=== PATIENT | female | born 1975 | race Caucasian/White ===

== ENCOUNTER 2021-09-17 13:12 | Observation (INO) | payer MEDICARE, SELFPAY ==
[2021-09-17] VITALS (17 sets, daily range): BP systolic 95–118; BP diastolic 67–90; PULSE 51–88; RESP 9–21; TEMP 36.4–37; O2SAT 93–100; BMI 23.1
--- NOTE | ~2021-09-17 | CT_ITS ---
EXAMINATION: CT abdomen pelvis wo con DATE: 09/17/2021 14:06 INDICATION: Low abdominal pain. Gastrointestinal hemorrhage. TECHNIQUE: Computed tomography (CT) of the abdomen and pelvis was performed without intravenous contr ast. Automated exposure control and iterative reconstruction technique were employed. The dose-length product was 238.05 mGy-cm. COMPARISON: None. FINDINGS: The visualized portions of the lung bases are clear without pneumonia or pleural effusion. There is left ventricular enlargement of the heart. 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 No pleural effusion. There are pacer wires in ri ght atrium and right ventricle. The liver, gallbladder, spleen, pancreas, adrenal glands, and kidneys are normal. There is no urolithiasis. There are no dilated loops of bowel. The appendix is normal. T here are no pathologically enlarged lymph nodes. There is no free intraperitoneal fluid. There is mil d lumbar spondylosis. IMPRESSION: 1. No etiology for the patient's symptoms. Reviewed, dictated and finalized at location B. 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
--- NOTE | 2021-09-17 13:35 | ED.GENADULT ---
HPI - General Adult General Chief complaint: GI Bleed Stated complaint: blood in vomit and stool Time Seen by Provider: 09/17/21 13:21 History of Present Illness HPI narrative: 45-year-old female with history of GI bleed presents to the emergency department for evaluation of hematemesis and hematochezia. Patient does have a prior history of GI bleed. Patient states her last GI bleed was approximately 10 years ago. Patient's last follow-up with GI was approximately 5 years ago. Patient has been taking up to 12 ibuprofen a day since July for ongoing dental pain. Patient began developing stomach pain about 4 days ago. Patient did have some emesis due to the stomach pain and noticed that she did have some blood in her emesis 2 days ago. And patient did have a bright red diarrhea stool today. Patient does report abdominal pain with nausea. Patient denies any chest pain or shortness of breath. Patient does report a prior history of drinking but denies any alcoholism, no drinking in 4 years. Patient also denies any prior history of esophageal varices. Related Data Home Medications Medication Instructions Recorded Confirmed carvedilol 3.125 mg PO BID 09/17/21 09/17/21 clopidogrel [Plavix] 75 mg PO DAILY 09/17/21 09/17/21 diazepam 5 mg PO TID PRN 09/17/21 09/17/21 famotidine 40 mg PO DAILY 09/17/21 09/17/21 furosemide [Lasix] 20 mg PO DAILY 09/17/21 09/17/21 levothyroxine 150 mcg PO DAILY 09/17/21 09/17/21 paroxetine HCl 10 mg PO QAM 09/17/21 09/17/21 rosuvastatin [Crestor] 40 mg PO DAILY 09/17/21 09/17/21 Allergies Allergy/AdvReac Type Severity Reaction Status Date / Time Penicillins AdvReac Seizure Verified 09/17/21 13:23 Review of Systems Review of Systems: CONSTITUTIONAL: Denies fever, chills, or sweats. EYES: Denies visual changes, redness, or discharge. ENT: Denies rhinorrhea, congestion, sore throat, or otalgia. CARDIOVASCULAR: Denies chest pain, palpitations, or edema. RESPIRATORY: Denies cough or dyspnea. GASTROINTESTINAL: Lower abdominal pain. Does report hematochezia and hematemesis GENITOURINARY: Denies dysuria or hematuria. SKIN: Denies rash or itching. MUSCULOSKELETAL: Denies back pain, joint pain, or myalgia. NEUROLOGIC: Denies headache, numbness, or weakness. PSYCHIATRIC: Denies anxiety or depression. [facility] Social History Social History Smoking packs per day: 0.5 Smoking cigarettes per day: 10.0 Smoking status: Current every day smoker Tobacco type: cigarettes Alcohol intake: never Substance use: current Substance use type: marijuana Spiritual care concerns: No Exam Narrative: APPEARANCE: Well appearing, no pain in distress, well-nourished. HEAD: normocephalic, atraumatic. EYES: PERRLA/EOMI, conjunctivae clear. NECK: Supple. No adenopathy, no masses. RESPIRATORY: Airway patent, respirations nonlabored. Clear to auscultation bilaterally, no rales, rhonchi, wheezing. CARDIOVASCULAR: Regular rate and rhythm without murmurs rubs or gallops. ABDOMINAL: Soft, nondistended, lower abdominal tenderness to palpation with MUSCULOSKELETAL: Moves all extremities. Strength/ROM intact, No edema, No calf tenderness. NEURO: Alert. Cranial nerves II through XII intact. SKIN: Warm, dry. Normal Color PSYCHIATRIC: Normal affect/mood. Course Course Emergency Course: Patient was started on Protonix for the GI bleed. Patient has no history of esophageal varices so octreotide was not ordered. Hemoglobin is stable at 15. Patient's labs and imaging were reviewed. Imaging was ordered due to the patient complaining of lower abdominal pain. Case was discussed with GI and he will see the patient as comfortable. Patient was discussed with the hospitalist and patient was admitted. Patient was clinically stable at time of admission. Consultations Consultation #1: Dr. Kinsey for GI was consulted due to the upper GI bleed. He agreed to see the patient as consult
[2021-09-17 13:41] LABS: Basophils Percent Auto 0.4 % (0.2-1.2); Eosinophils Percent Auto 0.2 % (0-4.4); Hematocrit 44.4 % (37.0-47.0); Hemoglobin 15.8 g/dL (12.0-15.0); Immature Granulocyte Absolute 0.04 K/mm3 (0.00-0.031); Immature Granulocyte Percent A 0.4 % (0-0.5); Lymphocytes Absolute Auto 2.16 K/mm3 (0.9-3.2); Lymphocytes Percent Auto 23.6 % (18.3-44.2); Mean Corpuscular HGB Conc 35.6 g/dl (32-36); Mean Corpuscular Hemoglobin 31.7 pg (26-34); Mean Platelet Volume 9.4 fl (7.4-10.4); Monocytes Absolute Auto 0.6 K/mm3 (0.1-0.6); Monocytes Percent Auto 6.8 % (2.6-8.5); Neutrophils Absolute Auto 6.3 K/mm3 (1.3-6.7); Neutrophils Percent Auto 68.6 % (45.5-73.1); Platelet Count Result 265 k/mm3 (150-375); Red Blood Count 4.99 M/mm3 (4.2-5.4); Red Cell Distribution Width 12.3 % (11.5-14.5); White Blood Count 9.2 K/mm3 (4.5-10.0)
[2021-09-17] MEDS: ONDANSETRON INJ 4 MG/2 ML VIAL IV PUSH ×2 (13:47→17:07)
[2021-09-17] MEDS: PANTOPRAZOLE SODIUM IV 40 MG VIAL 80 MG IV PUSH (13:47)
[2021-09-17] MEDS: SODIUM CHLORIDE 0.9% IV 1,000 ML 999 ML IV CONT (13:48)
[2021-09-17] MEDS: HYDROmorphone HCL INJ (*CRX) 1 MG/ML SYR 0.5 MG IV PUSH ×2 (13:51→21:10)
[2021-09-17 13:55] LABS: Alanine Aminotransferase 26 U/L (4-35); Albumin Level 5.2 g/dL (3.5-5.1); Alkaline Phosphatase 97 U/L (38-126); Anion Gap 13 mmol/L (8-16); Aspartate Amino Transferase 34 U/L (14-36); Bilirubin,Total 0.7 mg/dL (0.2-1.3); Blood Urea Nitrogen 12 mg/dL (7-17); Calcium 9.8 mg/dL (8.4-10.2); Carbon Dioxide 30 mmol/L (22-30); Chloride 98 mmol/L (98-107); Estimated CRCL calculation 51 ml/min; Estimated Glomerular Filt Rate 54; Glucose 155 mg/dL (65-110); Potassium 3.2 mmol/L (3.4-5.0); Sodium 141 mmol/L (137-145)
[2021-09-17 13:56] LABS: Prothrombin Time 13.3 Seconds (11.1-14.7)
--- NOTE | 2021-09-17 15:38 | WPDGICN ---
Assessment and Plan Assessment and plan (1) Acute upper gastrointestinal bleeding: Code(s): K92.2 - Gastrointestinal hemorrhage, unspecified Status: Acute Assessment and Plan: after vomiting for the past 5 days she became aware that she had blood in her emesis today. She did not have black stools which she recalls having had when she had a bleeding ulcer 10 years ago. Based on her excessive ibuprofen use, I suspect she probably has a gastric or duodenal ulcer. She may also have Isabel-Zarate tear because of her emesis. her hemoglobin on admission was normal. Based on her history I suspect she is quite dehydrated, although her BUN is surprisingly normal. After having had 1 L of IV fluids she states that she is still very thirsty. I will tentatively schedule her for an EGD to be done tomorrow (2) Rectal bleeding: Code(s): K62.5 - Hemorrhage of anus and rectum Status: Acute Assessment and Plan: the 1st episode was today. It was bright red suggesting that there may be a colorectal source of bleeding as well (3) Cardiomyopathy: Code(s): I42.9 - Cardiomyopathy, unspecified Status: Acute Assessment and Plan: this was diagnosed about 12 years ago. She was told that she has an abnormality of her heart valves from . She denies any chest pain at present. (4) Hypothyroidism: Code(s): E03.9 - Hypothyroidism, unspecified Status: Acute Assessment and Plan: She states that she became severely hypothyroid in that her body shut down this apparently led to some of her cardiac problems according to her core analyst, Dr. Cabral GI Consult Note Consult date/time: 09/17/21 15:38 HPI: Carmenza Beth is a 45 year old female who presents emergency room with a history of vomiting for the past 5 days. Today she noticed that there was blood in her emesis. She has not been able to eat because of the nausea. Which he vomited was mostly bile with streaks of red blood. She states her abdomen has felt as though it is on fire. The discomfort is generalized. She states that it briefly improved and in fact resolved for about an hour when she was given pantoprazole on her arrival. She had also been given hydromorphone, which I suspect was we gave her the temporary relief. She states that she began having clots of red blood in her stools which were loose and almost watery today. This is after having had no bowel movement for about 4 days. She states that she had a bleeding ulcer about 10 years ago and had an EGD and colonoscopy at that time. She does not have a primary care physician at the present time But does see a core analyst. 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 Her core analyst prescribes all of her medications including her thyroid medication. She apparently was very hypothyroid which led to her cardiac failure symptoms several years ago. She has had some sore teeth and needs dental work. Consequently she has been taking about 12 ibuprofen tablets daily since July. Review of Systems Review of Systems: All systems reviewed & are unremarkable except as noted in HPI and below Meds Home Medications and Allergies Home Medications Medication Instructions Recorded Confirmed Type carvedilol 3.125 mg PO BID 09/17/21 History clopidogrel [Plavix] 75 mg PO DAILY 09/17/21 History diazepam 5 mg PO TID PRN 09/17/21 History famotidine 40 mg PO DAILY 09/17/21 History furosemide [Lasix] 20 mg PO DAILY 09/17/21 History levothyroxine 150 mcg PO DAILY 09/17/21 History paroxetine HCl 10 mg PO QAM 09/17/21 History rosuvastatin [Crestor] 40 mg PO DAILY 09/17/21 History Allergies Allergy/AdvReac Type Severity Reaction Status Date / Time Penicillins AdvReac Seizure Verified 09/17/21 13:23 Vital Signs Vital Signs - 24 hr 09/17/21 13:14 Temperature 36.4 C P
[2021-09-17] MEDS: SODIUM CHLORIDE 0.9% IV 1,000 ML 125 ML IV CONT (17:06)
--- NOTE | 2021-09-17 17:24 | ADMGEN ---
This patient, Carmenza Beth, was admitted to Medical Room 342-01. Patient/family oriented to hospital policies and general routines including ID bracelet, bed and alarms, visiting hours, pain management, procedures, bathroom and other care routines, personal items, smoking policy, room service/diet, and visiting hours. Information on how to activate the Rapid Response Team has been discussed. Patient/Family are encouraged to report perceived risks to care and to ask questions if they do not understand what they are told or what they should do.
--- NOTE | 2021-09-17 23:26 | PM.IMHP ---
H&P: HPI History of Present Illness Date/Time: 09/17/212229 this is a 45-year-old female patient who came to the emergency room to be evaluated for GI bleed. The patient has been having some dental problems and has been taking up to 12 Motrin today along with her Plavix. The patient stated that her last GI bleed was approximately 10 years ago. The patient is complaining of having some epigastric discomfort. She has been having some hematemesis as well as hematochezia. The patient noticed that she had blood in her emesis about 2 days ago. This also led to bright red diarrhea stool today. She has abdominal pain with nausea. The patient denies drinking alcohol. She has had nothing to relieve her discomfort. H&H is 15.8 and 44.4. Patient most likely is dehydrated as well. Potassium slightly low at 3.2. Creatinine 1.1. Glucose 155. The patient was given Protonix IV, IV fluids, Dilaudid and Zofran in the emergency room. The patient is being admitted to observation status on the date of service of 09/17/21 Chief Complaint: Vomiting blood and blood in the stool Review of Systems Review of Systems: All systems reviewed & are unremarkable except as noted in HPI and below Constitutional: Constitutional: Reports as per HPI and Reports no additional constitutional complaints Eyes: Eyes: Reports as per HPI and Reports no additional eye complaints ENT: Reports system reviewed and no additional complaints, except as documented and Reports Normal hearing present Cardiovascular: Cardiovascular: Reports no additional cardiovascular complaints Respiratory: Respiratory: Reports no additional respiratory complaints and Reports no additional respiratory complaints Gastrointestinal: Gastrointestinal: Reports as per HPI and Reports no additional gastrointestinal complaints Musculoskeletal: Musculoskeletal: Reports no additional musculoskeletal complaints Integumentary/Breasts: Skin/Breast: Reports system reviewed and no additional complaints, except as docu and Reports as per HPI Neurologic: Reports system reviewed and no additional complaints, except as documented, Reports as per HPI and Reports Normal hearing present Psychiatric: Psychiatric: Reports no additional psychiatric complaints and Reports as per HPI Endocrine: Endocrine: Reports no additional endocrine complaints Hematologic/Lymphatic: Hematologic/Lymphatic: Reports no additional hematologic/lymphatic complaints Allergic/Immunologic: Allergic/Immunologic: Reports no additional allergic/immunologic complaints [facility] Past Medical History Medical History (Updated 09/17/21 @ 23:34 by Dinora Uribe NP) Anxiety CAD (coronary artery disease) Congestive heart failure Hyperlipidemia Surgical History Surgical History (Updated 09/17/21 @ 23:34 by Dinora Uribe NP) H/O heart artery stent According 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 She has 2 children. She is considered disabled. The patient is a current smoker but was strongly encouraged to quit smoking and stated that she was ready to quit smoking. The patient also uses marijuana. 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 She denies alcohol or illicit drugs. Code status full code Smoking packs per day: 0.5 Smoking cigarettes per day: 10.0 Smoking status: Current every day smoker Tobacco type: cigarettes Alcohol intake: never Substance use: current Substance use type: marijuana Spiritual care concerns: No Meds Home Medications and Allergies Home Medications Medication Instructions Recorded Confirmed Type carvedilol 3.125 mg PO BID 09/17/21
[2021-09-18] VITALS (8 sets, daily range): BP systolic 104–145; BP diastolic 60–92; PULSE 65–131; RESP 12–23; TEMP 36.1–36.3; O2SAT 92–100
[2021-09-18 01:25] LABS: Hematocrit 36.5 % (37.0-47.0); Hemoglobin 12.5 g/dL (12.0-15.0)
[2021-09-18] MEDS: ONDANSETRON INJ 4 MG/2 ML VIAL IV PUSH ×3 (01:50→12:36)
[2021-09-18] MEDS: SODIUM CHLORIDE 0.9% IV 1,000 ML 125 ML IV CONT ×2 (01:50→10:08)
[2021-09-18] MEDS: diazePAM (*CRX) 5 MG TABLET PO ×2 (02:10→12:36)
[2021-09-18] MEDS: LEVOTHYROXINE SODIUM 150 MCG TABLET PO (05:34)
[2021-09-18 06:02] LABS: Lactate Dehydrogenase 418 U/L (313-618); Magnesium 2.1 mg/dL (1.6-2.3)
[2021-09-18 06:06] LABS: Hematocrit 34.3 % (37.0-47.0); Hemoglobin 11.9 g/dL (12.0-15.0); Mean Corpuscular HGB Conc 34.7 g/dl (32-36); Mean Corpuscular Hemoglobin 31.3 pg (26-34); Mean Corpuscular Volume 90.3 fl (80-100); Mean Platelet Volume 9.5 fl (7.4-10.4); Platelet Count Result 207 k/mm3 (150-375); White Blood Count 7.1 K/mm3 (4.5-10.0)
[2021-09-18 06:52] LABS: Thyroid Stimulating Hormone Reflex 0.037 uIU/mL (0.465-4.68)
[2021-09-18] MEDS: LACTATED RINGERS 1,000 ML 150 ML IV CONT (07:26)
--- NOTE | 2021-09-18 07:34 | WPDANESEPPF ---
Anes - Initial Pre Proc Eval Procedure: Operation Date: 09/18/21 07:30 Proposed Procedures p Esophagogastroduodenoscopy - Giuliano Kinsey MD Date/Time: 09/18/21 07:34 Surgeon: Sandy Murphy PA-C Pre Op Diagnosis: upper GI bleed Patient Data Age: 45 Gender: F Height: 1.63 m Weight: 61.2 kg Last Vital Signs Temp 36.3 C L 09/18/21 07:10 Pulse 67 09/18/21 07:10 Resp 18 09/18/21 07:10 BP 125/79 09/18/21 07:10 Pulse Ox 98 09/18/21 07:10 Allergies Allergy/AdvReac Type Severity Reaction Status Date / Time Penicillins AdvReac Seizure Verified 09/18/21 07:25 Home Medications Medication Instructions Recorded Confirmed Type carvedilol 3.125 mg PO BID 09/17/21 09/17/21 History clopidogrel [Plavix] 75 mg PO DAILY 09/17/21 09/17/21 History diazepam 5 mg PO TID PRN 09/17/21 09/17/21 History famotidine 40 mg PO DAILY 09/17/21 09/17/21 History furosemide [Lasix] 20 mg PO DAILY 09/17/21 09/17/21 History levothyroxine 150 mcg PO DAILY 09/17/21 09/17/21 History paroxetine HCl 10 mg PO QAM 09/17/21 09/17/21 History rosuvastatin [Crestor] 40 mg PO DAILY 09/17/21 09/17/21 History Laboratory Tests 09/17/21 09/17/21 09/17/21 13:33 13:33 13:33 WBC 9.2 K/mm3 K/mm3 (4.5-10.0) RBC 4.99 M/mm3 M/mm3 (4.2-5.4) Hgb 15.8 g/dL H g/dL (12.0-15.0) Hct 44.4 % % (37.0-47.0) MCV 89.0 fl fl (80-100) MCH 31.7 pg pg (26-34) MCHC 35.6 g/dl g/dl (32-36) RDW 12.3 % % (11.5-14.5) Plt Count 265 k/mm3 k/mm3 (150-375) MPV 9.4 fl fl (7.4-10.4) Immature Gran % (Auto) 0.4 % % (0-0.5) Neut % (Auto) 68.6 % % (45.5-73.1) Lymph % (Auto) 23.6 % % (18.3-44.2) [place] % (Auto) 6.8 % % (2.6-8.5) Eos % (Auto) 0.2 % % (0-4.4) Baso % (Auto) 0.4 % % (0.2-1.2) Lymph # (Auto) 2.16 K/mm3 K/mm3 (0.9-3.2) [place] # (Auto) 0.6 K/mm3 K/mm3 (0.1-0.6) Eos # (Auto) 0.0 K/mm3 K/mm3 (0-0.3) Baso # (Auto) 0.0 K/mm3 K/mm3 (0.0-0.1) Abs Immat Gran (auto) 0.04 K/mm3 H K/mm3 (0.00-0.031) Absolute Neuts (auto) 6.3 K/mm3 K/mm3 (1.3-6.7) Absolute Nucleated RBC 0.0 K/mm3 K/mm3 (0.0-0.012) Nucleated RBC % 0.0 % % (0.0-0.2) PT 13.3 Seconds Seconds (11.1-14.7) INR 1.0 APTT 26.0 SECONDS SECONDS (22.3-36.8) Sodium 141 mmol/L mmol/L (137-145) Potassium 3.2 mmol/L L mmol/L (3.4-5.0) Chloride 98 mmol/L mmol/L (98-107) Carbon Dioxide 30 mmol/L mmol/L (22-30) Anion Gap 13 mmol/L mmol/L (8-16) BUN 12 mg/dL mg/dL (7-17) Creatinine 1.10 mg/dL H mg/dL (0.7-1.0) Estim Creat Clear Calc 51 ml/min ml/min Estimated GFR 54 L (59 - ) Glucose 155 mg/dL H mg/dL (65-110) Calcium 9.8 mg/dL mg/dL (8.4-10.2) Magnesium Ferritin Total Bilirubin 0.7 mg/dL mg/dL (0.2-1.3) AST 34 U/L U/L (14-36) ALT 26 U/L U/L (4-35) Alkaline Phosphatase 97 U/L U/L (38-126) Lactate Dehydrogenase Total Protein 8.0 g/dL g/dL (6.3-8.2) Albumin 5.2 g/dL H g/dL (3.5-5.1) TSH (Reflex) Free T4 Blood Type Antibody Screen 09/17/21 09/18/21 09/18/21 13:35 00:18 05:17 WBC 7.1 K/mm3 K/mm3 (4.5-10.0) RBC 3.80 M/mm3 L M/mm3 (4.2-5.4) Hgb 12.5 g/dL D g/dL 11.9 g/dL L g/dL (12.0-15.0) (12.0-15.0) Hct 36.5 % L % 34.3 % L % (37.0-47.0) (37.0-47.0) MCV 90.3 fl fl (80-100) MCH 31.3 pg pg (26-34) MCHC 34.7 g/dl g/dl (32-36) RDW 12.0 % % (11.5-14.5) Plt Count 207 k/mm3 k/mm3 (150-375) MPV 9.5 fl fl (7.4-1
--- NOTE | 2021-09-18 08:00 | ECG_ITS ---
Measurements Intervals [place] Rate: 53 P: 101 [place]: 191 QRS: 78 QRSD: 98 T: 89 QT: 453 QTc: 427 Interpretive Statements ELECTRONIC ATRIAL PACEMAKER WITH INHIBITION CANNOT RULE OUT SEPTAL INFARCT, AGE INDETERMINATE ST-T WAVE ABNORMALITY IN ANTEROLATERAL LEADS- CONSIDER ISCHEMIA BASELINE WANDER- V4 ABNORMAL ECG Electronically Signed On 09-18-2021 14:10:29 [employer] SALESPERSON by Derrick Guzmán D.O.
--- NOTE | 2021-09-18 08:45 | SUR.PHASEII ---
0806- Pt c/o nausea. Zofran 4mg IVP given. 0810-Pt up to use the restroom. Pt states she had a BM. No blood in stool.
[2021-09-18] MEDS: POTASSIUM CHLORIDE 20 MEQ TABLET 40 MEQ PO (09:30)
[2021-09-18] MEDS: PANTOPRAZOLE SODIUM IV 40 MG VIAL IV PUSH (09:30)
[2021-09-18] MEDS: ROSUVASTATIN 10 MG TABLET 40 MG PO (09:31)
[2021-09-18] MEDS: carvediloL 3.125 MG TABLET PO (09:31)
[2021-09-18] MEDS: PARoxetine 10 MG TABLET PO (09:31)
[2021-09-18] MEDS: FUROSEMIDE 20 MG TABLET PO (09:31)
[2021-09-18 10:09] LABS: Free T4 Free Thyroxine Reflex 1.92 ng/dL (0.78-2.19)
--- NOTE | 2021-09-18 10:58 | PM.DS ---
DS: Admitting Diagnosis Discharge Date 09/18/21 Admitting Diagnosis acute GI bleed DS: Discharge Diagnosis Discharge Diagnosis (1) Acute upper gastrointestinal bleeding: Code(s): K92.2 - Gastrointestinal hemorrhage, unspecified Status: Acute Assessment and Plan: -pt had been taking her plavix and up to 12 Motrin per day -GI consult -IV protonix -H/H q6 hrs, has been stable, Hgb dropped from 15.8 to 12.5 yesterday and then has remained stable today at 11.9 -EGD today, findings include nonerosive reflux disease, unspecified gastric ulcer, and duoedenitis. -GI recommendations per Dr. Kinsey: may be discharged today as she is able to eat and drink at this time. He recommends avoiding NSAIDs for 7 days and then only take with food in her stomach. She will also be discharged home on Protonix 40 mg QD x 6 weeks. -She will resume her Plavix on discharge (2) Rectal bleeding: Code(s): K62.5 - Hemorrhage of anus and rectum Status: Acute Assessment and Plan: -Secondary to above -Pt denies any further blood in her stools -Hgb stable, hemodynamically stable -Will follow up outpatient with GI (3) CAD (coronary artery disease): Code(s): I25.10 - Atherosclerotic heart disease of jackson coronary artery without angina pectoris Status: Chronic Assessment and Plan: -The patient tells me that she has a history of congestive heart failure as well as coronary artery disease with 14 stents due to congenital problem. -current smoker -EKG was ordered which was abnormal, no prior for comparison. Shows sinus arrhythmia and sinus bradycardia rate 53, with intermittent atrial pacing, somewhat biphasic T-waves in V3 through V6, T-wave inversion V5 and V6, and a possible septal with nonspecific ST changes. -consulted cardiology, spoke w/ Dr. Alfred who reveiwed EKG and saw the patient. Although the EKG is abnormal, pt denies any chest pain or shortness of breath. It is certainly possible that these EKG changes are old with her extensive cardiac history. Dr. Alfred also called the patient's regular shadowgraph scale operator who read a recent EKG over the phone and the changes on today's do seem to be consistent with prior EKGs. She has had two negative troponins and would like to be discharged. She is followed by Dr. Felicity Cabral and will follow up with her outpatient. -All questions and concerns were addressed. Strict return precautions provided. (4) Cardiomyopathy: Code(s): I42.9 - Cardiomyopathy, unspecified Status: Acute Assessment and Plan: -seen by cardiology here -will follow closely with her shadowgraph scale operator outpatient (5) Hypothyroidism: Code(s): E03.9 - Hypothyroidism, unspecified Status: Chronic Assessment and Plan: -continue with levothyroxine -TSH low but free T4 WNL -pcp follow up (6) Congestive heart failure: Code(s): I50.9 - Heart failure, unspecified Status: Chronic Assessment and Plan: -Continued with home meds (7) Hyperlipidemia: Code(s): E78.5 - Hyperlipidemia, unspecified Status: Chronic Assessment and Plan: -Continued with Crestor (8) Anxiety: Code(s): F41.9 - Anxiety disorder, unspecified Status: Chronic Assessment and Plan: -Continued with paroxetine and diazepam. DS: Summary Hospital Course Reason for hospitalization: 45 yo female w/ hx of GI bleed and CAD w/ 14 stents, current smoker, admitted for acute GI bleed. Please see HPI for further details. Hospital Course: Please see above for details of hospital stay. Time spent discussing smoking cessation with patient: more than 10 minutes Status at Discharge Cognitive/behavioral status at discharge: stable Functional status at discharge: independent ambulation Overall status at discharge: patient is progressing back to baseline Time Spent with Patient Time attestation: Total
[2021-09-18 12:00] LABS: Total Triiodothyronine (T3) 1.13 NG/ML (0.97-1.69)
[2021-09-18 12:09] LABS: Hematocrit 33.9 % (37.0-47.0); Hemoglobin 11.7 g/dL (12.0-15.0)
[2021-09-18 12:32] LABS: Troponin I < 0.012 ng/mL (0.000-0.034)
--- NOTE | 2021-09-18 13:50 | PM.CNCAR ---
Assessment and Plan Assessment and plan (1) Abnormal EKG: Code(s): R94.31 - Abnormal electrocardiogram [ECG] [EKG] Status: Acute Assessment and Plan: Patient has an abnormal EKG which could represent ischemia. I called [facility] in talk to the nurse practitioner on-call, Vu Brian, and got a verbal description of her most recent EKG which sounds similar to what we have at [facility]. He also gave me some background on her history as described above. The patient has had no chest discomfort and two neagive troponins so I think it is reasonable for her to be discharged today from a cardiac point of view. RAND CEMENTER Vu Brian felt it would be safe to hold her Plavix if needed for a short while. (2) CAD (coronary artery disease): Code(s): I25.10 - Atherosclerotic heart disease of [place] coronary artery without angina pectoris Status: Chronic Assessment and Plan: Long history of CAD, anterior STEMI in 2008, multiple stents. Last catheterization in January 2021 showed patent stents. Continue secondary prevention with Plavix (if okay with Dr. Kinsey), carvedilol, statin therapy etc. (3) Acute upper gastrointestinal bleeding: Code(s): K92.2 - Gastrointestinal hemorrhage, unspecified Status: Acute Assessment and Plan: Had upper GI bleeding with the decline in H&H due to duodenitis and gastric ulcers. Had been taking a lot of nonsteroidals recently for dental pain. These have been discontinued any she is on a PPI for 6 weeks. (4) Cardiomyopathy: Code(s): I42.9 - Cardiomyopathy, unspecified Status: Acute Assessment and Plan: History of cardiomyopathy most recent EF 35% in January 2021. ICD is followed by [facility]/Dr. Felicity Cabral. History of Present Illness History of Present Illness Consult date/time: 09/18/21 13:50 Requesting physician: Sandy Murphy PA-C Consult reason: Other (abnormal EKG) Reason For Visit: upper GI bleed Narrative: Carmenza Beth is a 45 y.o. WF usually followed by Dr. Felicity Cabral for her CAD. We were asked to see her at the request of the hospitalist for advice and opinion regarding her abnormal EKG in consultation. Very little past medical history is available through EMR, but Epic documents and discussion w/ RAND CEMENTER from [facility] show she had a STEMI in 2008 w/ an LAD stent. She has had multiple coronary interventions/stents placed in 2008, 2009, and in 2012. Her ejection fraction in 2019 was 25%. She had a Medtronic ICD implanted in 2013, and later a Biotronik generator change in October 2017. A note from Dr. Cabral dated November 2020 showed patient has frequent chest pain. Her stress test was abnormal. Cardiac catheterization in January 2021 showed patent stents, 50% in stent restenosis of the ostial diagonal stent and 40% stenosis of the distal Left anterior descending, EF 35%. In retrospect it appears that her Synthroid dose was too high and causing problems. She has been doing well over the summer and fall, and active with no angina or nitroglycerin use. The patient had been taking a lot of ibuprofen recently for dental pain and was admitted yesterday with hematemesis and hematochezia. Her hematocrit declined from 44 to 34. No further clinical bleeding. Patient takes Plavix but not aspirin at home. EGD today showed duodenitis and multiple superficial ulcers of the gastric antrum. He recommended avoiding nonsteroidals. The patient is on a PPI. She had an EKG done, perhaps a preprocedure EKG, which was abnormal. The patient states that she has had no chest pain or angina, no shortness of breath. She feels fine wants to go home. Review of Systems Constitutional: Constitutional: Reports no additional constitutional complaints Eyes: Eyes: Reports no additional eye complaints ENT:
[2021-09-18 15:39] LABS: Troponin I < 0.012 ng/mL (0.000-0.034)
== END 2021-09-18 16:10 | disposition home or self-care (01) ==
LOC: ANHED 15:20 → ANH3MED 15:33
PROVIDERS: Internal Medicine Gastroenterology; Nurse Practitioner; Admitting Provider Internal Medicine; Emergency Provider Emergency Medicine; Visit Provider Physician Assistant
PROC: 0DJ08ZZ Inspection of Upper Intestinal Tract, Via Natural or Artificial Opening Endoscopic (ICD-10-PCS; CPT 43235; principal; 2021-09-18 07:30)
DX: K25.4 Chronic or unspecified gastric ulcer with hemorrhage (principal); K21.9 Gastro-esophageal reflux disease without esophagitis; K29.80 Duodenitis without bleeding; K62.5 Hemorrhage of anus and rectum; I42.9 Cardiomyopathy, unspecified; R94.31 Abnormal electrocardiogram [ECG] [EKG]; E03.9 Hypothyroidism, unspecified; I25.10 Atherosclerotic heart disease of native coronary artery without angina pectoris; F41.9 Anxiety disorder, unspecified; I50.9 Heart failure, unspecified; E78.5 Hyperlipidemia, unspecified; Z95.5 Presence of coronary angioplasty implant and graft; Z79.02 Long term (current) use of antithrombotics/antiplatelets; F17.210 Nicotine dependence, cigarettes, uncomplicated; F12.90 Cannabis use, unspecified, uncomplicated
CPT/HCPCS: 43239; 36415; 74176; 80053; 82728; 83615; 83735; 84439; 84443; 84480; 84484; 85014; 85018; 85025; 85027; 85610; 85730; 86850; 86900; 86901; 87081; 93005; 96361; 96374; 96375; 96376; 99285; A9270; C9113; G0378; J1170; J2405; J2704; J7030; J7120

== ENCOUNTER 2021-10-05 12:06 | Outpatient (CLI) | payer MEDICARE, SELFPAY ==
[2021-10-05 12:50] LABS: Basophils Absolute Auto 0.1 K/mm3 (0.0-0.1); Basophils Percent Auto 0.7 % (0.2-1.2); Eosinophils Absolute Auto 0.1 K/mm3 (0-0.3); Eosinophils Percent Auto 1.1 % (0-4.4); Hematocrit 42.2 % (37.0-47.0); Hemoglobin 14.3 g/dL (12.0-15.0); Immature Granulocyte Absolute 0.02 K/mm3 (0.00-0.031); Immature Granulocyte Percent A 0.2 % (0-0.5); Lymphocytes Absolute Auto 2.84 K/mm3 (0.9-3.2); Lymphocytes Percent Auto 28.9 % (18.3-44.2); Mean Corpuscular HGB Conc 33.9 g/dl (32-36); Mean Corpuscular Hemoglobin 31.8 pg (26-34); Mean Corpuscular Volume 93.8 fl (80-100); Mean Platelet Volume 8.9 fl (7.4-10.4); Monocytes Absolute Auto 0.6 K/mm3 (0.1-0.6); Monocytes Percent Auto 6.3 % (2.6-8.5); Neutrophils Absolute Auto 6.2 K/mm3 (1.3-6.7); Neutrophils Percent Auto 62.8 % (45.5-73.1); Platelet Count Result 265 k/mm3 (150-375); Red Cell Distribution Width 12.4 % (11.5-14.5); White Blood Count 9.8 K/mm3 (4.5-10.0)
== END 2021-10-05 12:07 | disposition home or self-care (01) ==
PROVIDERS: Visit Provider Physician Assistant
DX: K92.2 Gastrointestinal hemorrhage, unspecified (principal)
CPT/HCPCS: 36415; 85025

== ENCOUNTER 2021-10-30 10:51 | Emergency (ER) | payer MEDICARE, SELFPAY ==
[2021-10-30] VITALS (8 sets, daily range): BP systolic 93–114; BP diastolic 64–77; PULSE 76–86; RESP 16–18; O2SAT 96–100
--- NOTE | ~2021-10-30 | XR_ITS ---
EXAMINATION: XR knee LT 3V EXAM DATE: 10/30/2021 11:16 INDICATION: fall x1 day, worsening lateral proximal fibular pain . TECHNIQUE: Three projections of the left knee. There is no prior study for comparison. FINDINGS: No evidence osteochondral defect or joint body in the left knee joint. There are no acute fractures or dislocations identified. There is no subcutaneous gas. There is moderate-sized joint effusion. There are no radiopaque foreign bodies. IMPRESSION: 1. XR knee LT 3V exam without acute osseous findings. 2. Moderate-sized joint effusion. Reviewed, dictated and finalized at location A. 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
--- NOTE | 2021-10-30 11:14 | ED.LOWEXIN ---
HPI - Extremity Injury (Lower) General Chief Complaint: Extremity Injury, Lower Stated Complaint: fall/knee injury Time Seen by Provider: 10/30/21 10:58 Source: patient History of Present Illness HPI Narrative: Patient presents with left knee pain. Reports she stepped off a curb yesterday slipped on ice and fell onto her left knee. Attempted to walk her pain off however today her pain is much worse so she came to the ER for evaluation. Pain is achy, constant, worse with attempting to move the knee. Reports she is unable to ambulate today due to the pain. She denies any focal numbness or weakness denies striking her head or any loss of consciousness Related Data Home Medications Medication Instructions Recorded Confirmed carvedilol 3.125 mg PO BID 09/17/21 09/17/21 clopidogrel [Plavix] 75 mg PO DAILY 09/17/21 09/18/21 diazepam 5 mg PO TID PRN 09/17/21 09/17/21 furosemide [Lasix] 20 mg PO DAILY 09/17/21 09/17/21 levothyroxine 150 mcg PO DAILY 09/17/21 09/17/21 paroxetine HCl 10 mg PO QAM 09/17/21 09/17/21 rosuvastatin [Crestor] 40 mg PO DAILY 09/17/21 09/17/21 Allergies Allergy/AdvReac Type Severity Reaction Status Date / Time Penicillins AdvReac Seizure Verified 09/18/21 07:25 Review of Systems Review of Systems: CONSTITUTIONAL: Denies fever, chills, or sweats. EYES: Denies visual changes, redness, or discharge. ENT: Denies rhinorrhea, congestion, sore throat, or otalgia. CARDIOVASCULAR: Denies chest pain, palpitations, or edema. RESPIRATORY: Denies cough or dyspnea. GASTROINTESTINAL: Denies abdominal pain, nausea, vomiting, or diarrhea. GENITOURINARY: Denies dysuria or hematuria. SKIN: Denies rash or itching. MUSCULOSKELETAL: Denies back pain, joint pain, or myalgia. NEUROLOGIC: Denies headache, numbness, dizziness, or weakness. PSYCHIATRIC: Denies anxiety or depression. All systems reviewed & are unremarkable except as noted in HPI and below PMFSH Past Medical History Medical History (Updated 10/30/21 @ 12:10 by Fracisco Wynne MD) Acute knee pain Anxiety CAD (coronary artery disease) Multiple stents in , 2009, and 2012. Cath January [address] Felicity Cabral showed patent stents, 50% in-stent stenosis of deidre ostial diagonal stent, 40% stenosis of distal LAD, EF 35%. 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 She has 2 children. She is considered disabled. The patient is a current smoker but was strongly encouraged to quit smoking and stated that she was ready to quit smoking. The patient also uses marijuana. 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 She denies alcohol or illicit drugs. Code status full code Smoking packs per day: 0.5 Smoking cigarettes per day: 10.0 Smoking status: Current every day smoker Tobacco type: cigarettes Alcohol intake: never Substance use: current Substance use type: marijuana Spiritual care concerns: No Exam Narrative: GENERAL: Well-appearing, well-nourished, and in no acute distress. HEAD: Normocephalic, atraumatic. EYES: PERRLA and EOMI. ENT: Nares clear, no rhinorrhea or epistaxis. Mucous membranes moist. NECK: Supple. No masses. No JVD EXTREMITIES: Moderate edema noted to the left knee with superficial abrasion no obvious deformity there is diffuse tenderness but
[2021-10-30] MEDS: KETOROLAC 30 MG/ML VIAL (*BKC) IM (11:58)
== END 2021-10-30 12:28 | disposition home or self-care (01) ==
PROVIDERS: Emergency Provider Emergency Medicine
DX: S89.92XA Unspecified injury of left lower leg, initial encounter (principal); I25.10 Atherosclerotic heart disease of native coronary artery without angina pectoris; E78.5 Hyperlipidemia, unspecified; I50.9 Heart failure, unspecified; F41.9 Anxiety disorder, unspecified; Z79.02 Long term (current) use of antithrombotics/antiplatelets; Z95.810 Presence of automatic (implantable) cardiac defibrillator; F17.210 Nicotine dependence, cigarettes, uncomplicated; W00.0XXA Fall on same level due to ice and snow, initial encounter
CPT/HCPCS: 73562; 96372; 99283; J1885